=== PATIENT | male | born 1980 | race Hispanic/Latino ===

== ENCOUNTER 2019-04-06 02:06 | Emergency (ER) | payer SELFPAY ==
[2019-04-06] MEDS ORDERED: Sucralfate 1 GM/10 ML UDCUP ONE (02:29)
[2019-04-06] MEDS ORDERED: Lorazepam 1 MG TAB ONE (03:21)
== END 2019-04-06 04:25 | disposition home or self-care (01) ==
LOC: ERS 02:06
DX: R13.10 Dysphagia, unspecified (principal); F41.9 Anxiety disorder, unspecified; K21.9 Gastro-esophageal reflux disease without esophagitis
CPT/HCPCS: 99283

== ENCOUNTER 2019-04-09 17:50 | Emergency (ER) | payer SELFPAY ==
[~2019-04-09 17:50] MED LIST: Iopamidol-370 76% 500 ML 1 ML ONE
[2019-04-09] MEDS ORDERED: Lorazepam 2 MG/ML VIAL ONE (18:45)
--- NOTE | 2019-04-09 19:23 | CT ---
CT OF NECK PERFORMED WITH INTRAVENOUS CONTRAST ENHANCEMENT: 04/09/28 HISTORY: Difficulty swallowing. The visualized brain parenchyma is unremarkable. The sinuses are clear. Small Thornwaldt cyst is an i ncidental finding. Epiglottis is normal in appearance. No airway compromise. Vocal cord region is nor mal. Thyroid gland is normal in size. No significant jugular chain adenopathy. The lung apices are clear. IMPRESSION: No significant findings of the neck. Incidental note is made of a small Thornwaldt cyst. POS: ANDRIY
== END 2019-04-09 19:54 | disposition home or self-care (01) ==
LOC: ERS 17:50
DX: R13.10 Dysphagia, unspecified (principal); K21.9 Gastro-esophageal reflux disease without esophagitis; Z79.899 Other long term (current) drug therapy
CPT/HCPCS: 70491; 96374; J2060; Q9967